=== PATIENT | male | born 1935 | race Caucasian/White ===

== ENCOUNTER 2018-09-13 16:52 | Emergency (ER) | payer OTHER, MEDICARE ==
[2018-09-13 16:58] VITALS: BP 117/68; PULSE 86; TEMP 97.8; BMI 31.8
--- NOTE | 2018-09-13 17:15 | PDOC ---
History of Present Illness <Kevin Rivera - Last Filed: 09/13/18 18:27> - History of Present Illness Initial Comments: 83yo M with PMH of HTN, HLD, colon CA s/p resection sent by his primary care physician for constipation. Patient states he has had this issue for the past week. He has had a brown stool every day, but there has been significant straining. He has taken ducolax with minimal change in his symptoms. He endorses reflux for which he has received relief from Tums, Gaviscon, and from belching. Patient states he does not drink very much water. Denies fever, chills , chest pain, or shortness of breath. <Deborah Smith - Last Filed: 09/13/18 18:46> - General Chief Complaint: Constipation Stated Complaint: CONSTIPATION Time Seen by Provider: 09/13/18 17:15 Past History <Kevin Rivera - Last Filed: 09/13/18 18:27> - Past Medical History Anemia: No Asthma: No Cancer: Yes (COLON) Cardiac Disorders: No CVA: No COPD: No CHF: No Dementia: No Diabetes: No GI Disorders: Yes (COLON CANCER) Disorders: Yes (H/O UTI) HTN: Yes Hypercholesterolemia: Yes Liver Disease: No Seizures: No Thyroid Disease: No - Surgical History Abdominal Surgery: Yes (COLON RESECTION 2009) Appendectomy: No Cardiac Surgery: No Cholecystectomy: No Lung Surgery: No Neurologic Surgery: No Orthopedic Surgery: Yes (LEFT KNEE AND RIGHT HIP REPLACEMENT 2002) - Suicide/Smoking/Psychosocial Hx Smoking History: Never smoked Have you smoked in the past 12 months: No Information on smoking cessation initiated: No Hx Alcohol Use: No Drug/Substance Use Hx: No Substance Use Type: None Hx Substance Use Treatment: No <Deborah Smith - Last Filed: 09/13/18 18:46> - Past Medical History Allergies/Adverse Reactions: Allergies Allergy/AdvReac Type Severity Reaction Status Date / Time No Known Allergies Allergy Verified 09/13/18 16:54 Home Medications: Ambulatory Orders Aspirin [Aspirin Ec] 81 mg PO DAILY 11/04/13 Polyethylene Glycol 3350 [Miralax (For Daily Use) -] 17 gm PO DAILY #1 bottle *Physical Exam - Vital Signs Last Vital Signs Temp Pulse Resp BP Pulse Ox 97.8 F 86 18 117/68 97 09/13/18 16:52 09/13/18 16:52 09/13/18 16:52 09/13/18 16:52 09/13/18 16:52 <Kevin Rivera - Last Filed: 09/13/18 18:27> - Vital Signs Last Vital Signs Temp Pulse Resp BP Pulse Ox 97.8 F 86 18 117/68 97 09/13/18 16:52 09/13/18 16:52 09/13/18 16:52 09/13/18 16:52 09/13/18 16:52 <Deborah Smith - Last Filed: 09/13/18 18:46> Moderate Sedation - Procedure Monitoring Vital Signs: Procedure Monitoring Vital Signs Temperature 97.8 F 09/13/18 16:52 Pulse Rate 86 09/13/18 16:52 Respiratory Rate 18 09/13/18 16:52 Blood Pressure 117/68 09/13/18 16:52 O2 Sat by Pulse Oximetry (%) 97 09/13/18 16:52 <Kevin Rivera - Last Filed: 09/13/18 18:27> - Procedure Monitoring Vital Signs: Procedure Monitoring Vital Signs Temperature 97.8 F 09/13/18 16:52 Pulse Rate 86 09/13/18 16:52 Respiratory Rate 18 09/13/18 16:52 Blood Pressure 117/68 09/13/18 16:52 O2 Sat by Pulse Oximetry (%) 97 09/13/18 16:52 <Deborah Smith - Last Filed: 09/13/18 18:46> ED Treatment Course - RADIOLOGY Radiology Studies Ordered: Category Date Time Status ABDOMEN [id number] [RAD] Stat Radiology 09/13/18 17:46 Taken <Kevin Rivera - Last Filed: 09/13/18 18:27> *DC/Admit/Observation/Transfer - Discharge Dispostion Decision to Admit order: No <Kevin Rivera - Last Filed: 09/13/18 18:27> <Deborah Smith - Last Filed: 09/13/18 18:46> Diagnosis at time of Disposition: Constipation Qualifiers: Constipation type: unspecified constipation type Qualified Code(s): K59.00 - Constipation, unspecified - Discharge Dispostion Disposition: HOME Condition at time of disposition: Stable - Prescriptions Prescriptions: Polyethylene Glycol 3350 [Miralax (For Daily Use) -] 17 gm PO DAILY #1 bottle - Referrals Referrals: Nell Brooks MD [Primary Care Provider] - - Patient Instructions Printed Discharge Instructions: DI for Constipation Additional Instructions: You came into the ED for constipation. An Xray showed that you were constipated. Drink plenty of water and eat more fruits and vegetables. Take 1 packet of miralax daily for the next five days Follow-up with your primary care doctor in one week to discuss this ED visit and to further evaluate your symptoms. Immediate medical attention is required if you have: you develop worsening pain , high fevers, persistent nausea, vomiting, or any new or concerning symptoms. If you think you are having an emergency, call for emergency medical services or present to the emergency department right away. - Post Discharge Activity
--- NOTE | 2018-09-13 18:23 | PDOC ---
Attending Attestation - Resident Resident Name: Deborah Smith - ED Attending Attestation I have performed the following: I have examined & evaluated the patient, The case was reviewed & discussed with the resident, I agree w/resident's findings & plan, Exceptions are as noted - HPI HPI: 09/13/18 18:22 Reviewed residents HPI - Physicial Exam PE: 09/13/18 18:22 Reviewed Residents PE - Medical Decision Making 09/13/18 18:22 83 years old patient sent to the emergency department for evaluation of constipation and questionable abdominal distention Patient has a soft abdomen on examination there is no rebound no guarding no tenderness his passing flatus he is not impacted distally His x-ray is notable or gas and stool We will recommend that he drinks more water increases the amount of fruit and vegetables in his diet and start a 5 day course of MiraLAX He will follow up with his doctor next week and will return to the emergency department for any severe worsening symptoms or for any concerns. <Kevin Rivera - Last Filed: 09/13/18 18:22> - Medical Decision Making 09/13/18 18:[address] Brooks, patient's PCP to update on care, case was discussed. <Tatianna Vaughn - Last Filed: 09/13/18 18:32> Attestations - Attestations 09/13/18 18:31 Documentation prepared by Tatianna Vaughn, acting as medical director/head team physician for Kevin Rivera MD. <Tatianna Vaughn - Last Filed: 09/13/18 18:32>
== END 2018-09-13 18:32 | disposition home or self-care (01) ==
LOC: FER 16:52
DX: K59.00 Constipation, unspecified (principal); I10 Essential (primary) hypertension; E78.5 Hyperlipidemia, unspecified; Z85.038 Personal history of other malignant neoplasm of large intestine
CPT/HCPCS: 74021-TC-FY; 99282-25

== ENCOUNTER 2018-11-20 08:00 | Day surgery (SDC) | payer OTHER, MEDICARE ==
[2018-10-24 09:41] VITALS: BMI 31.4
[2018-11-20 08:19] VITALS: TEMP 97.5
[2018-11-20] MEDS ORDERED: PROPOFOL 20 ML ONE (08:51)
[2018-11-20 10:15] VITALS: BP 116/71; PULSE 87
--- NOTE | 2018-11-25 16:46 | PATH ---
Surgical Pathology Report Patient Name: ASHA STEINER [facility]. Rec. #: [id number] /Age/Gender: 1935 (Age: 83) / M Account: [id number] Location: [facility] Taken: 11/20/2018 Received: 11/20/2018 Reported: 11/25/2018 Physicians: Jorge Pang M.D. Specimen(s) Received A: BX DUODENUM B: BX ANTRUM C: BX ESOPHAGUS Clinical History GERD Postoperative diagnosis: Gastritis, esophageal polyp/mass Final Diagnosis A. 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 NO HISTOLOGIC EVIDENCE OF CELIAC DISEASE. B. ANTRUM, BIOPSY: GASTRIC MUCOSA WITH CHRONIC GASTRITIS. IMMUNOSTAIN FOR H. PYLORI IS NEGATIVE. NEGATIVE FOR INTESTINAL METAPLASIA. C. ESOPHAGUS, BIOPSY: ADENOCARCINOMA, WELL DIFFERENTIATED. Intradepartmental case reviewed with concordance on diagnosis, November 25, 2018. Electronically Signed Dina Rojas M.D. Gross Description A. Received in formalin, labeled "duodenum" are 2 garduno, irregular portions of soft tissue averaging 0.4 cm. in greatest dimension. The specimens are submitted in toto in one cassette. B. Received in formalin, labeled "antrum" are 2 garduno, irregular portions of soft tissue averaging 0.3 cm. in greatest dimension. The specimens are submitted in toto in one cassette. C. Received in formalin, labeled "esophagus" are 4 garduno, irregular portions of soft tissue ranging from 0.1-0.5] cm. in greatest dimension. The specimens are submitted in toto in one cassette. 11/21/2018 saudi11/21/2018
== END 2018-11-20 09:52 | disposition home or self-care (01) ==
LOC: FASU-ENDO 08:00 → MERGE 08:00 → FASU-ENDO 09:52
PROVIDERS: ATTEND Internal Medicine Gastroenterology
PROC: 0DB68ZX Excision of Stomach, Via Natural or Artificial Opening Endoscopic, Diagnostic (ICD-10-PCS; 2018-11-20)
PROC: 0DB38ZX Excision of Lower Esophagus, Via Natural or Artificial Opening Endoscopic, Diagnostic (ICD-10-PCS; 2018-11-20)
PROC: 0DB98ZX Excision of Duodenum, Via Natural or Artificial Opening Endoscopic, Diagnostic (ICD-10-PCS; principal; 2018-11-20 09:16)
DX: R12 Heartburn (principal); C15.5 Malignant neoplasm of lower third of esophagus; K29.80 Duodenitis without bleeding; K29.50 Unspecified chronic gastritis without bleeding
CPT/HCPCS: 88305-TC; 88342-TC

== ENCOUNTER 2019-09-03 18:20 | Emergency (ER) | payer OTHER, MEDICARE ==
[2019-09-03 18:33] VITALS: PULSE 79; TEMP 97.6; BMI 32.5
--- NOTE | 2019-09-03 18:51 | PDOC ---
History of Present Illness - General Chief Complaint: Nasal Bleeding Stated Complaint: nose bleed Time Seen by Provider: 09/03/19 18:37 History Source: Patient Exam Limitations: No Limitations - History of Present Illness Initial Comments: 09/03/19 18:47 84 y/o male with nose bleed today that has stopped. On Eliquis. Had a nose bleed yesterday too. No fever or chills. No headache or weakness. Denies trauma or fall. Seen in urgent care recently and placed on Prednisone and Amoxicillin. Past History - Past Medical History Allergies/Adverse Reactions: Allergies Allergy/AdvReac Type Severity Reaction Status Date / Time No Known Allergies Allergy Verified 09/03/19 18:22 Home Medications: Ambulatory Orders Polyethylene Glycol 3350 [Miralax (For Daily Use) -] 17 gm PO DAILY #1 bottle Atorvastatin Ca [Lipitor] 40 mg PO HS 10/24/18 Metoprolol Succinate [Toprol Xl -] 50 mg PO HS 10/24/18 Pantoprazole Sodium [Protonix] 40 mg PO HS 10/24/18 Amoxicillin 875 mg PO ASDIR 09/03/19 Apixaban [Eliquis] 5 mg PO BID 09/03/19 Prednisone 10 mg PO ASDIR 09/03/19 Anemia: No Asthma: No Cancer: Yes (colorectal) Cardiac Disorders: No CVA: No COPD: No CHF: No Dementia: No Diabetes: No GI Disorders: Yes (acid reflux) Disorders: No HTN: Yes Hypercholesterolemia: Yes Liver Disease: No Seizures: No Thyroid Disease: No - Surgical History Abdominal Surgery: Yes (colon resection) Appendectomy: No Cardiac Surgery: No Cholecystectomy: No Lung Surgery: No Neurologic Surgery: No Orthopedic Surgery: Yes (Kwasi total knee replacement,R THR) - Psycho Social/Smoking Cessation Hx Smoking History: Never smoked Have you smoked in the past 12 months: No Hx Alcohol Use: No Drug/Substance Use Hx: No Substance Use Type: None Hx Substance Use Treatment: No Review of Systems - Review of Systems Able to Perform ROS?: Yes Is the patient limited Upper Sorbian proficient: No Constitutional: No: Chills, Fever HEENTM: Yes: Nose Bleeding Respiratory: No: Cough, Shortness of Breath Cardiac (ROS): No: Chest Pain, Lightheadedness, Palpitations Musculoskeletal: No: Muscle Weakness Neurological: No: Headache All Other Systems: Reviewed and Negative *Physical Exam - Vital Signs Last Vital Signs Temp Pulse Resp BP Pulse Ox 97.6 F 79 18 157/110 H 98 09/03/19 18:21 09/03/19 18:21 09/03/19 18:21 09/03/19 18:21 09/03/19 18:21 - Physical Exam General Appearance: Yes: Nourished, Appropriately Dressed. No: Apparent Distress HEENT: positive: EOMI, ELENI, Normal Voice, Symmetrical, Pharynx Normal. negative: Normal ENT Inspection (left nostril with inflamed turbinates no active bleeding, right nostril normal), Nasal Congestion, Rhinorrhea Neck: positive: Trachea midline, Normal Thyroid, Supple. negative: Tender, Rigid Respiratory/Chest: positive: Lungs Clear, Normal Breath Sounds. negative: Chest Tender, Respiratory Distress Cardiovascular: positive: Regular Rhythm, Regular Rate, S1, S2. negative: Edema , JVD, Murmur Vascular Pulses: Femoral (R): 4+, Femoral (L): 4+, Carotid (R): 4+, Carotid (L) : 4+, Dorsalis-Pedis (R): 4+, Doralis-Pedis (L): 4+ Gastrointestinal/Abdominal: positive: Normal Bowel Sounds, Flat, Soft. negative : Tender, Organomegaly Lymphatic: negative: Adenopathy, Tenderness, Other Musculoskeletal: positive: Normal Inspection. negative: CVA Tenderness Extremity: positive: Normal Capillary Refill, Normal Inspection, Normal Range of Motion Integumentary: positive: Normal Color, Dry, Warm Neurologic: positive: software installer II-XII NML intact, Fully Oriented, Alert, Normal Mood/ Affect (no focal deficits noted), Normal Response, Motor Strength 5/5 ED Treatment Course - ADDITIONAL ORDERS Additional order review: 09/03/19 18:50 On Eliqui, nose bleed has stopped Watch If worsen return to ER Discharge - Discharge Information Problems reviewed: Yes Clinical Impression/Diagnosis: Epistaxis Condition: Improved Disposition: HOME - Admission No - Follow up/Referral Referrals: Steven Hawk MD [Primary Care Provider] - - Patient Discharge Instructions Patient Printed Discharge Instructions: DI for Nosebleed Additional Instructions: Ice, Tylenol, rest Pressure Avoid hot foods/drinks for 24-48 hr If worsen return to ER - Post Discharge Activity
[2019-09-03 19:05] VITALS: BP 128/75
== END 2019-09-03 19:05 | disposition home or self-care (01) ==
LOC: FER 18:20 → SUPCPDRO 18:20 → FER 19:05
DX: R04.0 Epistaxis (principal); I10 Essential (primary) hypertension; E78.00 Pure hypercholesterolemia, unspecified; K21.9 Gastro-esophageal reflux disease without esophagitis; Z85.038 Personal history of other malignant neoplasm of large intestine; Z79.01 Long term (current) use of anticoagulants; Z96.653 Presence of artificial knee joint, bilateral; Z96.641 Presence of right artificial hip joint
CPT/HCPCS: 99281-25

== ENCOUNTER 2020-12-27 16:30 | Inpatient (IN) | payer OTHER, MEDICARE ==
[2020-12-27] MEDS ORDERED: SODIUM CHLORIDE 1,000 ML IV STA (16:36)
[2020-12-27] MEDS ORDERED: ONDANSETRON 4 MG/2 ML VIAL IVPB ONE (16:54)
[2020-12-27] MEDS ORDERED: morphine CARPU-JECT 4 MG/1 ML DISP.SYRIN IVPUSH ONE ×2 (16:54→19:36)
[2020-12-27] MEDS ORDERED: morphine SULFATE 4 MG/ML VIAL ONE ×3 (17:03→22:19)
[2020-12-27] MEDS ORDERED: ONDANSETRON 4 MG/2 ML VIAL ONE ×3 (17:06→22:19)
[2020-12-27 17:12] LABS: HEMATOCRIT 46.5 % (35.4-49); HEMOGLOBIN 15.2 GM/dl (11.7-16.9); MCH 27.7 pg (25.7-33.7); MCHC 32.7 g/dl (32.0-35.9); MEAN CELL VOLUME 84.7 fl (80-96); MEAN PLT VOLUME 8.2 fl (7.5-11.1); PLATELET COUNT 181 K/MM3 (134-434); RBC 5.48 M/mm3 (4.00-5.60); RDW 15.3 % (11.9-15.9); WHITE BLOOD COUNT 10.9 K/mm3 (4.0-10.8)
[2020-12-27 17:25] LABS: ACTIVATED PTT 31.1 SECONDS (25.2-36.5)
[2020-12-27 17:29] LABS: ALBUMIN 3.8 g/dl (3.4-5.0); ALK PHOS 128 U/L (45-117); ANION GAP 11 MMOL/L (8-16); BILIRUBIN,TOTAL 3.5 mg/dl (0.2-1); CALCIUM 8.6 mg/dl (8.5-10); CHLORIDE 99 mmol/L (98-107); CO2 27 mmol/L (21-32); GLUCOSE,RANDOM 105 mg/dl (74-106); MAGNESIUM 2.3 mg/dL (1.8-2.4); PHOSPHOROUS 3.4 mg/dl (2.5-4.9); SGOT/AST 17 U/L (15-37); SGPT/ALT 17 U/L (13-61); SODIUM 137 mmol/L (136-145); TOT PROT 6.3 g/dl (6.4-8.2)
[2020-12-27 17:30] LABS: INR 2.04 (0.82-1.09); PROTHROMBIN TIME (PATIENT) 21.8 SEC (10.2-13.0)
[2020-12-27 17:59] LABS: LIPASE 137 U/L (73-393)
[2020-12-27] MEDS ORDERED: PIPERACILLIN/TAZOB 3.375 GM 3.375 GM in DEXTROSE 5%-WATER - 50 ML IVPB ONE (18:32)
[2020-12-27] MEDS ORDERED: PIPERACILLIN/TAZOBACTAM 3.375 GM VIAL IVPB ONE (18:37)
[2020-12-27 19:24] LABS: PLATELET ESTIMATE ADEQUATE
[2020-12-27] MEDS ORDERED: ONDANSETRON 4 MG/2 ML VIAL IVPUSH ONE ×2 (19:36→22:17)
[2020-12-27] MEDS: SODIUM CHLORIDE 1,000 ML IV SCH (20:19)
[2020-12-27] MEDS ORDERED: MORPHINE SULFATE 2 MG/ML VIAL IVPUSH ONE (22:16)
[2020-12-27] MEDS ORDERED: ATORVASTATIN CA 20 MG TABLET (FP) ONE (22:19)
[2020-12-27] MEDS: ATORVASTATIN CA 40 MG TABLET (FP) PO SCH (22:22)
[2020-12-27] MEDS: PANTOPRAZOLE 40 MG TABLET PO SCH (22:41)
[2020-12-27] MEDS: BISACODYL 5 MG TABLET.DR (FP) PO SCH (22:41)
[2020-12-28] MEDS ORDERED: MORPHINE SULFATE 2 MG/ML VIAL IVPUSH ONE ×2 (01:45→08:36)
[2020-12-28] MEDS ORDERED: PIPERACILLIN/TAZOB 3.375 GM 3.375 GM in DEXTROSE 5%-WATER - 50 ML IVPB SCH (02:00)
[2020-12-28] MEDS ORDERED: PIPERACILLIN/TAZOBACTAM 3.375 GM VIAL IVPB ONE ×3 (02:17→17:27)
[2020-12-28] MEDS ORDERED: DEXTROSE 5%-WATER - 50 ML IVPB ONE ×3 (02:17→17:27)
[2020-12-28] MEDS: ENOXAPARIN NA (PORCINE) 100 MG/1 ML DISP.SYRIN SQ SCH ×2 (02:25→13:01)
[2020-12-28] MEDS: PIPERACILLIN/TAZOB 3.375 GM 3.375 GM in DEXTROSE 5%-WATER - 50 ML IVPB SCH ×3 (02:25→17:47)
[2020-12-28] MEDS: BISACODYL 5 MG TABLET.DR (FP) PO SCH ×3 (06:12→21:24)
[2020-12-28 06:58] VITALS: BMI 33.0
[2020-12-28 08:34] LABS: INR 1.79 (0.83-1.09); PROTHROMBIN TIME (PATIENT) 21.6 SEC (9.7-13.0)
[2020-12-28 08:35] LABS: HEMATOCRIT 41.3 % (35.4-49); HEMOGLOBIN 13.7 GM/dL (11.7-16.9); MCH 28.1 pg (25.7-33.7); MCHC 33.2 g/dl (32.0-35.9); MEAN CELL VOLUME 84.8 fl (80-96); MEAN PLT VOLUME 8.4 fl (7.5-11.1); PLATELET COUNT 149 K/MM3 (134-434); RBC 4.87 M/mm3 (4.00-5.60); RDW 15.7 % (11.9-15.9); WHITE BLOOD COUNT 16.8 K/mm3 (4.0-10.0)
[2020-12-28 08:48] LABS: BLOOD UREA NITROGEN 15.4 mg/dL (7-18)
[2020-12-28 08:50] LABS: CALCIUM 8.4 mg/dL (8.5-10.1)
[2020-12-28 08:51] LABS: CREATININE 0.8 mg/dL (0.55-1.3); MAGNESIUM 2.5 mg/dL (1.8-2.4); PHOSPHOROUS 3.3 mg/dL (2.5-4.9)
[2020-12-28] MEDS: PANTOPRAZOLE 40 MG TABLET PO SCH ×2 (10:32→21:24)
[2020-12-28] MEDS: ZINC SULFATE 220 MG CAPSULE (FP) PO SCH (10:32)
[2020-12-28] MEDS: CYANOCOBALAMIN 1,000 MCG TABLET (FP) PO SCH (10:32)
[2020-12-28] MEDS: CHOLECALCIFEROL (VIT D3) 1,000 UNIT (25 MCG) TABLET PO SCH (10:32)
[2020-12-28 11:13] LABS: BILIRUBIN,TOTAL 2.6 mg/dL (0.2-1)
[2020-12-28 11:14] LABS: TOT PROT 5.4 g/dl (6.4-8.2)
[2020-12-28 11:15] LABS: ALBUMIN 2.8 g/dl (3.4-5.0)
[2020-12-28] MEDS: SODIUM CHLORIDE 1,000 ML IV SCH ×2 (11:59→20:00)
[2020-12-28] MEDS: MORPHINE SULFATE 2 MG/ML VIAL IVPUSH PRN (14:32)
[2020-12-28] MEDS ORDERED: ONDANSETRON 4 MG/2 ML VIAL IVPUSH ONE (14:47)
[2020-12-28] MEDS ORDERED: ONDANSETRON 4 MG/2 ML VIAL IVPUSH PRN (15:24)
[2020-12-28] MEDS: ACETAMINOPHEN 1000 MG/100 ML VIAL (NON FORMULARY) IVPB PRN ×2 (16:32→23:40)
[2020-12-28] MEDS: ATORVASTATIN CA 40 MG TABLET (FP) PO SCH (21:24)
[2020-12-29] MEDS ORDERED: PIPERACILLIN/TAZOBACTAM 3.375 GM VIAL IVPB ONE ×3 (02:45→17:41)
[2020-12-29] MEDS ORDERED: DEXTROSE 5%-WATER - 50 ML IVPB ONE ×3 (02:46→17:41)
[2020-12-29] MEDS: PIPERACILLIN/TAZOB 3.375 GM 3.375 GM in DEXTROSE 5%-WATER - 50 ML IVPB SCH ×3 (02:49→17:42)
[2020-12-29 04:06] LABS: SARS-CoV-2 NAA Not Detected (Not Detected)
[2020-12-29] MEDS: BISACODYL 5 MG TABLET.DR (FP) PO SCH ×2 (06:35→14:10)
[2020-12-29] MEDS: SODIUM CHLORIDE 1,000 ML IV SCH (08:41)
[2020-12-29] MEDS: ACETAMINOPHEN 1000 MG/100 ML VIAL (NON FORMULARY) IVPB PRN (08:41)
[2020-12-29] MEDS: CYANOCOBALAMIN 1,000 MCG TABLET (FP) PO SCH ×2 (09:18→11:03)
[2020-12-29] MEDS: PANTOPRAZOLE 40 MG TABLET PO SCH ×2 (09:18→09:31)
[2020-12-29] MEDS: ZINC SULFATE 220 MG CAPSULE (FP) PO SCH ×2 (09:18→09:31)
[2020-12-29] MEDS: CHOLECALCIFEROL (VIT D3) 1,000 UNIT (25 MCG) TABLET PO SCH ×2 (09:18→09:31)
[2020-12-29] MEDS ORDERED: PT OWN MED DRAWER 7, Y5N ONE ×2 (09:26→11:02)
[2020-12-29 09:49] LABS: HEMOGLOBIN 12.7 GM/dL (11.7-16.9); MCH 28.1 pg (25.7-33.7); MCHC 33.4 g/dl (32.0-35.9); MEAN CELL VOLUME 84.3 fl (80-96); MEAN PLT VOLUME 8.5 fl (7.5-11.1); PLATELET COUNT 155 K/MM3 (134-434); RDW 15.7 % (11.9-15.9)
[2020-12-29 10:15] LABS: BILIRUBIN,TOTAL 2.1 mg/dL (0.2-1)
[2020-12-29 10:17] LABS: ALBUMIN 2.4 g/dl (3.4-5.0); BLOOD UREA NITROGEN 21.3 mg/dL (7-18); CALCIUM 8.6 mg/dL (8.5-10.1); CREATININE 1.1 mg/dL (0.55-1.3); MAGNESIUM 2.8 mg/dL (1.8-2.4); PHOSPHOROUS 2.5 mg/dL (2.5-4.9); TOT PROT 5.1 g/dl (6.4-8.2)
[2020-12-29 14:27] VITALS: BP 119/75; PULSE 99; TEMP 98.1
[2020-12-29] MEDS: MORPHINE SULFATE 2 MG/ML VIAL IVPUSH PRN (17:05)
== END 2020-12-29 18:37 | disposition short-term general hospital (02) | DRG 444 ==
LOC: FER 16:30 → J6S 12-28 01:00
PROVIDERS: ADMIT Hospitalist; ATTEND Internal Medicine
DX: K81.0 Acute cholecystitis (principal); U07.1 COVID-19; I10 Essential (primary) hypertension; E78.5 Hyperlipidemia, unspecified; Z85.038 Personal history of other malignant neoplasm of large intestine; E66.9 Obesity, unspecified; Z68.33 Body mass index [BMI] 33.0-33.9, adult; I48.91 Unspecified atrial fibrillation; Z79.01 Long term (current) use of anticoagulants; I71.2 Thoracic aortic aneurysm, without rupture; G47.33 Obstructive sleep apnea (adult) (pediatric); Z85.01 Personal history of malignant neoplasm of esophagus
CPT/HCPCS: 36415; 71045-TC-FY; 76705-TC; 80048; 80053; 81003; 82180; 83605; 83615; 83690; 83735; 84100; 84484; 85025; 85027; 85379; 85610; 85651; 85730; 86140; 86769; 86850; 86900; 86901; 87086; 94010; 99285-25; C9803; J0131; U0003; U0005

== ENCOUNTER 2023-04-15 09:06 | Emergency (ER) | payer OTHER, MEDICARE ==
[2023-04-15 09:20] VITALS: BP 115/83; PULSE 66; RESP 18; TEMP 97.8; BMI 30.7
== END 2023-04-15 09:30 | disposition home or self-care (01) ==
LOC: FER 09:06
DX: M54.50 Low back pain, unspecified (principal)
CPT/HCPCS: 99283-25

== ENCOUNTER 2023-04-29 16:03 | Emergency (ER) | payer OTHER, MEDICARE ==
[2023-04-29 16:22] VITALS: BP 117/67; PULSE 102; RESP 18; TEMP 98.3; BMI 30.7
[2023-04-29] MEDS ORDERED: CIPROFLOXACIN 250 MG TABLET (RESTRICTED TO ID) PO ONE ×2 (17:04→17:09)
== END 2023-04-29 17:20 | disposition home or self-care (01) ==
LOC: FER 16:03
DX: R31.9 Hematuria, unspecified (principal)
CPT/HCPCS: 81003; 81015; 87086; 99283-25